=== PATIENT | male | born 1945 | race Caucasian/White ===

== ENCOUNTER 2022-03-31 17:00 | Observation (INO) ==
[2022-03-31 19:57] LABS: Basophils # 0.1 K/mcL (0.0-0.2); Basophils % 1.6 %; Eosinophils # 0.2 K/mcL (0.0-0.6); Eosinophils % 2.7 %; Hemoglobin 12.4 g/dL (12.9-16.9); Immature Granulocytes % 0.1 % (0-4); Lymphocytes # 2.3 K/mcL (0.6-4.6); Lymphocytes % 30.5 %; Mean Corpuscular HGB Conc 33.5 g/dL (31.6-35.5); Mean Corpuscular Hemoglobin 31.2 pg (28.0-33.3); Mean Corpuscular Volume 93.2 fL (83.0-100.0); Mean Platelet Volume 9.1 fL (9.4-12.4); Monocytes # 0.6 K/mcL (0.0-1.3); Monocytes % 7.3 %; Neutrophils # 4.4 K/mcL (1.6-8.9); Platelet Count 203 K/mcL (140-400); Red Blood Count 3.97 M/mcL (4.19-5.50); Red Cell Distribution Width 13.1 % (11.5-14.5); Segmented Neutrophils % 57.8 %; White Blood Count 7.5 K/mcL (4.3-11.1)
[2022-03-31 20:12] LABS: BUN/Creatinine Ratio 10 (6-26); Blood Urea Nitrogen 13 mg/dL (8-23); Calcium 9.1 mg/dL (8.6-10.3); Carbon Dioxide 26 mEq/L (23-29); Chloride 103 mEq/L (98-107); Glucose 100 mg/dL (70-105); Osmolality,Calculated 284 (280-300); Potassium 3.8 mEq/L (3.5-5.1); Sodium 137 mEq/L (136-145); eGFR For African Americans > 60 (> 60); eGFR For Non-African Americans 57 (> 60)
[2022-04-01] MEDS ORDERED: Melatonin 3 MG TABLET PO PRN (00:15)
[2022-04-01] MEDS ORDERED: Naloxone 0.4 MG/ML INJ IVP PRN (00:15)
[2022-04-01] MEDS ORDERED: Ondansetron 4 MG/2 ML VIAL IVP PRN (00:15)
[2022-04-01] MEDS ORDERED: Acetaminophen 325 MG TABLET PO PRN (00:15)
[2022-04-01] MEDS ORDERED: Perflutren Lipid Microsphere 1.3 ML in 0.9 % Sodium Chloride 8.7 ML IVP PRN (04:41)
[2022-04-01] MEDS: *HR* Heparin 5,000 UNIT/ML VIAL SQ SCH ×2 (07:11→18:10)
[2022-04-01 10:20] LABS: Basophils # 0.1 K/mcL (0.0-0.2); Basophils % 0.7 %; Eosinophils # 0.1 K/mcL (0.0-0.6); Eosinophils % 1.2 %; Hematocrit 38.9 % (37.5-50.1); Hemoglobin 12.9 g/dL (12.9-16.9); Immature Granulocytes % 0.4 % (0-4); Lymphocytes # 1.8 K/mcL (0.6-4.6); Lymphocytes % 15.4 %; Mean Corpuscular HGB Conc 33.2 g/dL (31.6-35.5); Mean Corpuscular Hemoglobin 31.1 pg (28.0-33.3); Mean Corpuscular Volume 93.7 fL (83.0-100.0); Monocytes # 0.7 K/mcL (0.0-1.3); Monocytes % 5.8 %; Neutrophils # 8.9 K/mcL (1.6-8.9); Platelet Count 209 K/mcL (140-400); Red Blood Count 4.15 M/mcL (4.19-5.50); Red Cell Distribution Width 13.2 % (11.5-14.5); Segmented Neutrophils % 76.5 %
[2022-04-01 10:29] LABS: INR 1.2; Prothrombin Time 13.6 Seconds (9.4-12.1)
[2022-04-01 10:34] LABS: White Blood Count 11.6 K/mcL (4.3-11.1)
[2022-04-01 10:47] LABS: Alanine Aminotransferase 13 Units/L (7-52); Albumin 4.2 g/dL (3.5-5.7); Albumin/Globulin Ratio 1.2 (1.1-2.2); Alkaline Phosphatase 84 Units/L (34-104); Aspartate Amino Transferase 18 Units/L (13-39); BUN/Creatinine Ratio 9 (6-26); Bilirubin,Total 0.8 mg/dL (0.3-1.0); Blood Urea Nitrogen 12 mg/dL (8-23); Calcium 9.5 mg/dL (8.6-10.3); Carbon Dioxide 25 mEq/L (23-29); Chloride 107 mEq/L (98-107); Globulin 3.5 g/dL (2.4-3.5); Glucose 114 mg/dL (70-105); Magnesium 2.1 mg/dL (1.6-2.6); Osmolality,Calculated 293 (280-300); Phosphorous 2.8 mg/dL (2.7-4.5); Potassium 3.8 mEq/L (3.5-5.1); Sodium 141 mEq/L (136-145); Total Protein 7.7 g/dL (6.4-8.9); Troponin I 0.08 ng/mL (< 0.04); eGFR For African Americans > 60 (> 60); eGFR For Non-African Americans 55 (> 60)
[2022-04-01] MEDS: Loxapine Succinate [Loxapine] 25 MG Capsule PO SCH (16:51)
[2022-04-01] MEDS: Loratadine 10 MG TABLET PO SCH (16:51)
[2022-04-01] MEDS: Mirtazapine 15 MG TABLET PO SCH (20:31)
[2022-04-01] MEDS: clonazePAM 0.5 MG TABLET PO SCH (20:31)
[2022-04-01] MEDS: lamoTRIgine 100 MG TABLET PO SCH (20:31)
[2022-04-01] MEDS: Melatonin 3 MG TABLET PO SCH (20:32)
[2022-04-02] MEDS: *HR* Heparin 5,000 UNIT/ML VIAL SQ SCH ×2 (05:12→16:47)
[2022-04-02 08:32] LABS: Basophils # 0.1 K/mcL (0.0-0.2); Basophils % 1.1 %; Eosinophils # 0.3 K/mcL (0.0-0.6); Eosinophils % 3.4 %; Hematocrit 41.5 % (37.5-50.1); Hemoglobin 13.5 g/dL (12.9-16.9); Immature Granulocytes % 0.3 % (0-4); Mean Corpuscular HGB Conc 32.5 g/dL (31.6-35.5); Mean Corpuscular Volume 95.2 fL (83.0-100.0); Mean Platelet Volume 9.2 fL (9.4-12.4); Monocytes # 0.5 K/mcL (0.0-1.3); Monocytes % 6.8 %; Neutrophils # 4.6 K/mcL (1.6-8.9); Platelet Count 232 K/mcL (140-400); Red Blood Count 4.36 M/mcL (4.19-5.50); Red Cell Distribution Width 13.3 % (11.5-14.5); Segmented Neutrophils % 61.4 %; White Blood Count 7.5 K/mcL (4.3-11.1)
[2022-04-02 08:51] LABS: BUN/Creatinine Ratio 10 (6-26); Blood Urea Nitrogen 13 mg/dL (8-23); Calcium 9.5 mg/dL (8.6-10.3); Carbon Dioxide 31 mEq/L (23-29); Chloride 106 mEq/L (98-107); Glucose 98 mg/dL (70-105); Osmolality,Calculated 296 (280-300); Potassium 3.6 mEq/L (3.5-5.1); Sodium 143 mEq/L (136-145); eGFR For African Americans > 60 (> 60); eGFR For Non-African Americans 52 (> 60)
[2022-04-02] MEDS ORDERED: lisinopriL 10 MG TABLET PO SCH (09:00)
[2022-04-02] MEDS: Aspirin Enteric Coated 81 MG Tablet PO SCH (10:00)
[2022-04-02] MEDS: Loratadine 10 MG TABLET PO SCH (10:00)
[2022-04-02] MEDS: clonazePAM 0.5 MG TABLET PO SCH ×2 (10:01→21:48)
[2022-04-02] MEDS: lamoTRIgine 100 MG TABLET PO SCH ×2 (10:01→21:48)
[2022-04-02] MEDS: Loxapine Succinate [Loxapine] 25 MG Capsule PO SCH (10:03)
[2022-04-02] MEDS: carvediloL 6.25 MG TABLET PO SCH (16:48)
[2022-04-02] MEDS ORDERED: DIMETHICONE TP SCH (21:00)
[2022-04-02] MEDS: Mirtazapine 15 MG TABLET PO SCH (21:48)
[2022-04-02] MEDS: haloperidoL 5 MG TABLET PO SCH (21:48)
[2022-04-02] MEDS: Melatonin 3 MG TABLET PO SCH (21:48)
[2022-04-03 03:31] LABS: Calcium 9.2 mg/dL (8.6-10.3); Magnesium 2.3 mg/dL (1.6-2.6); Potassium 3.4 mEq/L (3.5-5.1)
[2022-04-03] MEDS: *HR* Heparin 5,000 UNIT/ML VIAL SQ SCH (05:59)
[2022-04-03] MEDS: lamoTRIgine 100 MG TABLET PO SCH (07:39)
[2022-04-03] MEDS: clonazePAM 0.5 MG TABLET PO SCH (07:39)
[2022-04-03] MEDS: carvediloL 6.25 MG TABLET PO SCH (07:39)
[2022-04-03] MEDS: Aspirin Enteric Coated 81 MG Tablet PO SCH (07:40)
[2022-04-03] MEDS: Loratadine 10 MG TABLET PO SCH (07:40)
[2022-04-03] MEDS: haloperidoL 5 MG TABLET PO SCH (07:40)
[2022-04-03] MEDS: Loxapine Succinate [Loxapine] 25 MG Capsule PO SCH (08:22)
[2022-04-03] MEDS ORDERED: BETAMETHASONE VALERATE TP SCH (12:11)
[2022-04-03 12:45] LABS: Calcium 9.4 mg/dL (8.6-10.3); Potassium 4.9 mEq/L (3.5-5.1)
[2022-04-03 15:32] VITALS: TEMP 98.4
[2022-04-03] MEDS ORDERED: carvediloL 6.25 MG TABLET PO SCH (17:00)
[2022-04-03 17:45] VITALS: BP 147/71; PULSE 48; O2SAT 97
[2022-04-03] MEDS ORDERED: OLANZapine 10 MG TAB.RAPDIS PO SCH (21:00)
== END 2022-04-03 17:46 | disposition home or self-care (01) ==
LOC: EMEROOARM 17:00 → 2NNU 17:00
PROVIDERS: ADMIT Family Medicine; ATTEND Family Medicine